=== PATIENT | female | born 1990 | race Two or more races ===

== ENCOUNTER 2019-07-14 15:06 | Emergency (ER) | payer SELFPAY ==
[~2019-07-14] VITALS: Ht 165.1 cm; Wt 73.5 kg
[2019-07-14 15:25] VITALS: BP 118/69
--- NOTE | 2019-07-14 17:31 | NUR ---
PT CALLED TO ER, PT NOT IN WAITING ROOM
--- NOTE | 2019-07-14 17:45 | NUR ---
called - no answer- tona
== END 2019-07-14 18:36 | disposition left against medical advice (07) ==
LOC: ER 15:12
DX: R11.2 Nausea with vomiting, unspecified (principal); R19.7 Diarrhea, unspecified; Z53.21 Procedure and treatment not carried out due to patient leaving prior to being seen by health care provider